=== PATIENT | female | born 1970 | race Caucasian/White ===

== ENCOUNTER 2024-04-05 12:14 | Emergency (ER) | payer SELFPAY ==
--- NOTE | 2024-04-05 13:17 | RAD REPORT ---
Procedure: Chest Single View HISTORY: Chest pain COMPARISON: 2013 FINDINGS: The lungs appear clear of acute infiltrate. No significant pleural effusion noted. The heart is mildly enlarged. IMPRESSION: No acute abnormality is displayed.
[2024-04-05] MEDS ORDERED: ASPIRIN 81 MG CHEWABLE TABLET ONE (13:47)
[2024-04-05] MEDS ORDERED: NA CHLORIDE 0.9% 1,000 ML ONE (13:47)
[2024-04-05 13:59] LABS: Specific Gravity 1.009 (1.005-1.030); Sqamous Epithelial <5 /HPF (None Seen); Urine Bacteria <20 /HPF (<20); Urine Bilirubin NEGATIVE (Negative); Urine Blood Negative (Negative); Urine Clarity Turbid (Clear); Urine Color Colorless (Yellow); Urine Culture Reflex Order NOT NEEDED; Urine Glucose NEGATIVE (Negative); Urine Ketones NEGATIVE (Negative); Urine Microscopic Reflex YN ORDER UMIC; Urine Nitrite NEGATIVE (Negative); Urine Protein NEGATIVE (Negative); Urine RBC None Seen /HPF (None Seen); Urine Urobilinogen Normal (Normal); Urine WBC <5 /HPF (<5)
[2024-04-05 13:59] LABS: Absolute Basophils 0.1 K/uL (0-0.5); Absolute Eosinophils 0.3 K/uL (0-0.5); Absolute Lymphocytes (CBC) 2.8 K/uL (0.7-4.9); Absolute Monocytes 0.7 K/uL (0.1-1.3); Absolute Neutrophil 6.4 K/uL (1.8-8.0); Basophils % 1.1 % (0-1.3); Eosinophils % 3.3 % (0-4.4); Hematocrit 40.4 % (36.0-45.0); Hemoglobin 13.7 g/dL (12.0-15.0); Lymphocytes % 26.9 % (15.3-44.8); MCH 31.1 pg (27.0-35.0); MCHC 33.9 g/dL (32.0-36.0); Monocytes % 6.5 % (3.3-12.3); Neutrophils % 62.2 % (41.7-73.7); Platelets 260 thou/uL (152-406); RBC Red Blood Cell Count 4.39 M/uL (3.86-4.86); Red Cell Distribution Width 13.2 % (12.1-15.2)
[2024-04-05 14:02] LABS: Protime INR 0.98
[2024-04-05 14:17] LABS: ALT/SGPT 21 U/L (13-56); AST/SGOT 16 U/L (15-37); Albumin 3.3 g/dL (3.4-5.0); Albumin/Globulin Ratio 0.9 (1.1-1.8); Alkaline Phosphatase 95 U/L (45-117); Anion Gap 8.7 mEq/L (5.0-15.0); BUN Blood Urea Nitrogen 13 mg/dL (7-18); Bicarbonate 27 mEq/L (21-32); Bilirubin Total 0.3 mg/dL (0.2-1.0); Globulin 3.7 g/dL (2.3-3.5); Glomerular Filtration Rate 101 ml/min (=/>90); Glucose Level 121 mg/dL (74-106); Lipase 67 U/L (13-75); Magnesium 2.1 mg/dL (1.6-2.4); NT PRO-BNP 48 pg/mL (<125); Potassium 3.7 mEq/L (3.5-5.1); Sodium Level 141 mEq/L (136-145); Troponin High Sensitivity 16.9 pg/mL (<58.9)
[2024-04-05 14:18] LABS: Bilirubin Direct < 0.2 mg/dL (0-0.2); Bilirubin Indirect, Calculated 0.1 mg/dL (0.2-0.8)
[2024-04-05] MEDS ORDERED: ONDANSETRON 4 MG/2 ML VIAL ONE (15:55)
[2024-04-05] MEDS ORDERED: dexAMETHasone 10 MG/ML VIAL ONE (15:55)
[2024-04-05] MEDS ORDERED: KETOROLAC 30 MG/ML INJ ONE (15:56)
[2024-04-05] MEDS ORDERED: DIAZEPAM 5 MG TABLET ONE (15:56)
--- NOTE | 2024-04-05 16:27 | RAD REPORT ---
EXAMINATION: MRI CERVICAL SPINE WITHOUT CONTRAST CLINICAL INDICATION: Radiculopathy TECHNIQUE: Multiplanar multisequence MR images were obtained of the cervical spine without intravenou s contrast. Unless otherwise specified, incidental findings do not require dedicated imaging follow-up. COMPARISON: No prior exam. FINDINGS: Craniocervical junction unremarkable C2-3 unremarkable Slight anterior subluxation C3 on C4. Otherwise unremarkable Slight anterior subluxation C4-C5. Tiny central disc protrusion not significant. Disc bulge C5-6 with small osteophytes. Mild to moderate narrowing of the right neural foramina. Osteophytes C6-7 results in mild narrowing of the right C7-T1 unremarkable spinal cord normal caliber and signal. No significant abnormal signal within the bones. IMPRESSION: Spondylosis C5-6 results in mild to moderate right foraminal stenosis
--- NOTE | 2024-04-05 16:36 | RAD REPORT ---
Exam:Shoulder Right 2+ Views History: Right shoulder pain Findings: No fracture or dislocation seen No significant bone or joint abnormality noted
--- NOTE | 2024-04-05 16:48 | ER ---
Nurse's Notes [facility] Name: Christiane Oliveira Age: 54 yrs Sex: Female : 1970 Arrival Date: 04/05/2024 Time: 12:14 Bed 18 Private MD: Diagnosis: Cervical disc disorder with radiculopathy, cervicothoracic region;Radiculopathy, cervical region;Unspecified symptoms and signs involving the musculoskeletal system;Spondylolysis, cervical [id number] Presentation: 04/05 12:24 Chief complaint: Patient states: she has been having intermittent right shoulder pain ap3 for approx one week, but it got worse yesterday. patient reports the pain initially started on the back side of her shoulder blade/neck area and then she started having numbing, throbbing, and tingling pain in her right arm that also started approx one week ago intermittently. Coronavirus screen: At this time, the client does not indicate any symptoms associated with coronavirus-19. Ebola Screen: No symptoms or risks identified at this time. Initial Sepsis Screen: Does the patient meet any 2 criteria? Yes Does the patient have a suspected source of infection? No. Patient's initial sepsis screen is negative. Risk Assessment: Do you want to hurt yourself or someone else? Patient reports no desire to harm self or others. Onset of symptoms is unknown. 12:24 Method Of Arrival: Ambulatory ap3 12:24 Acuity: YUKI 3 ap3 Triage Assessment: 12:27 General: Appears uncomfortable, Behavior is calm, cooperative, appropriate for age. ap3 Pain: Complains of pain in right arm, right shoulder, right side of neck Pain currently is 10 out of 10 on a pain scale. Pain began gradually. Neuro: Level of Consciousness is awake, alert, obeys commands, Oriented to person, place, time, situation, Appropriate for age. Cardiovascular: Patient's skin is warm and dry. Respiratory: Airway is patent Respiratory effort is even, unlabored, Respiratory pattern is regular, symmetrical. Historical: - Allergies: 12:26 Compazine; ap3 - Home Meds: 12:27 None [Active]; ap3 - PMHx: 12:27 None; ap3 - Immunization history:: Client reports receiving the 2nd dose of the Covid vaccine, Flu vaccine is up to date. - Infectious Disease History:: Denies. - Social history:: Smoking status: Patient reports the use of cigarette tobacco products, denies chronic smoking, but will smoke occasionally. Screenin:28 [facility] ED Fall Risk Assessment (Adult) History of falling in the last 3 months, ap3 including since admission No falls in past 3 months (0 pts) Confusion or Disorientation No (0 pts) Intoxicated or Sedated No (0 pts) Impaired Gait No (0 pts) Mobility Assist Device Used No (0 pt) Altered Elimination No (0 pt) Score/Fall Risk Level 0 - 2 = Low Risk Oriented to surroundings, Maintained a safe environment, Educated pt \T\ family on fall prevention, incl call for assistance when getting out of bed, Assessed \T\ reinforced patient's understanding of fall precautions, Hourly rounding (assess needs \T\ fall precautionary measures) done, Used ambulatory aids as needed (educated on \T\ assisted with), Used gait belt as appropriate. Abuse screen: Denies threats or abuse. Nutritional screening: No deficits noted. Tuberculosis screening: No symptoms or risk factors identified. Assessment: 13:40 Reassessment: Patient appears in no apparent distress at this time. Patient and/or db family updated on plan of care and expected duration. Pain level reassessed. Patient is alert, oriented x 3, equal unlabored respirations, skin warm/dry/pink. General: Appears in no apparent distress. comfortable, Behavior is calm, cooperative. Pain: Complains of pain in anterior aspect of right shoulder and right axilla. Neuro: Level of Consciousness is awake, alert, obeys commands, Oriented to person, place, time, situation. Respiratory: Airway is patent Respiratory effort is even, unlabored, Respiratory pattern is regular, symmetrical. 15:05 Reassessment: PT AMBULATORY TO RESTROOM. db 15:33 Reassessment: Patient appears in no apparent distress at this time. Patient and/or db family updated on plan of care and expected duration. Pain level reassessed. Patient is alert, oriented x 3, equal unlabored respirations, skin warm/dry/pink. 16:34 Reassessment: Patient appears in no apparent distress at this time. Patient and/or db family updated on plan of care and expected duration. Pain level reassessed. Patient is alert, oriented x 3, equal unlabored respirations, skin warm/dry/pink. VISITOR AT BEDSIDE. 17:32 Reassessment: Patient appears in no apparent distress at this time. Patient and/or db family updated on plan of care and expected duration. Pain level reassessed. Patient is alert, oriented x 3, equal unlabored respirations, skin warm/dry/pink. Vital Signs: 12:24 BP 174 / 92; Pulse 68; Resp 18; Temp 97.9; Pulse Ox 100% ; Weight 117.93 kg; Height 5 ap3 ft. 5 in. ; Pain 10/10; 13:49 BP 144 / 69; Pulse 59; Resp 16; Pulse Ox 99% on R/A; db 16:13 BP 154 / 72; Pulse 68; Resp 16; Pulse Ox 100% on R/A; db 17:15 BP 148 / 70; Pulse 68; Resp 16; Pulse Ox 100% on R/A; db 12:24 Body Mass Index 43.27 (117.93 kg, 165.1 cm) ap3 12:24 Pain Scale: Adult ap3 NIH Stroke Scale Scores: 15:21 NIHSS Score: 0 [facility] ED Course: 12:17 Patient arrived in ED. ra3 12:26 Chi Witt MD is Attending Physician. zhao 12:26 Triage completed. ap3 12:28 Arm band placed on right wrist. ap3 12:58 XRAY Chest (1 view) In Process Unspecified. EDMS 12:58 Teresa Singer, RN is Primary Nurse. db 13:40 Inserted saline lock: 22 gauge in left antecubital area, using aseptic technique. Blood db collected. Flushed with 10 mL NS. 14:00 Client placed on continuous cardiac and pulse oximetry monitoring. NIBP monitoring db applied. monitoring analyst on. Pulse ox on. NIBP on. 14:20 Patient has correct armband on for positive identification. Bed in low position. Call db light in reach. Side rails up X 1. 15:33 Patient moved to MRI via wheelchair. db 15:55 C Spine Wo Cont In Process Unspecified. EDMS 16:12 Shoulder Right (2 View) XRAY In Process Unspecified. EDMS 16:12 Patient moved back from radiology. Patient moved back from MRI. db 16:46 Goran Cabello MD is Referral Physician. zhao 17:45 Provided Education on: DISCHARGE AND FOLLOWUP . Warm blanket given. Pillow given. db 17:45 No provider procedures requiring assistance completed. IV discontinued, intact, db bleeding controlled, No redness/swelling at site. Administered Medications: 13:53 Drug: Aspirin PO Chewable Tablet 162 mg PO once Route: PO; db 15:58 Follow up: Response: No adverse reaction db 13:53 Drug: NS 0.9% IV 1000 ml IV at 1 bolus Per protocol; to be given as a bolus over 60 db minutes Route: IV; Rate: 1 bolus; Site: right antecubital; 17:00 Follow up: Response: No adverse reaction; IV Status: Completed infusion; IV Intake: db 1000ml 16:15 Drug: Decadron - Dexamethasone IVP 10 mg IVP once Route: IVP; Site: left antecubital; db 17:06 Follow up: Response: No adverse reaction db 16:15 Drug: Ketorolac IVP 30 mg IVP once Route: IVP; Site: left antecubital; db 17:07 Follow up: Response: No adverse reaction db 16:15 Drug: Ondansetron IVP 4 mg IVP once; over 2 minutes Route: IVP; Site: left antecubital; db 17:07 Follow up: Response: No adverse reaction db 16:15 Drug: Diazepam PO 10 mg PO once Route: PO; db 17:06 Follow up: Response: No adverse reaction db 17:04 Not Given (Patient Refused): fentanyl (pf)50 mcg IVP once db Medication: 17:45 VIS not applicable for this client. db Intake: 17:00 IV: 1000ml; Total: 1000ml. db Outcome: 16:48 Discharge ordered by MD. churchill 17:45 Discharged to home ambulatory, with family, db 17:45 Condition: stable 17:45 Discharge instructions given to patient, family, Instructed on discharge instructions, follow up and referral plans. Prescriptions given X 4, 17:47 Patient left the ED. db NIH Stroke Scale - NIH Stroke Score Date: 04/05/2024 Time: 15:21 Total Score = 0 10. Dysarthria (speech clarity - read or repeat words) - 0(Normal) 11. Extinction and Inattention (visual/tactile/auditory/spatial/personal) - 0(No abnormality) 1a. Level of Consciousness (LOC) - 0(Alert) 1b. Level of Consciousness (LOC) (Month \T\ Age) - 0(Both) 1c. LOC Commands (Open \T\ Closes Eyes/Commercial Accountant) - 0(Both) 2. Best Gaze (Lateral Gaze Paresis) - 0(Normal) 3. Visual Field Loss - 0(No visual loss) 4. Facial Palsy - 0(Normal) 5a. Left Arm: Motor (10-second hold) - 0(No drift) 5b. Right Arm: Motor (10-second hold) - 0(No drift) 6a. Left Leg: Motor (5-second hold - always test supine) - 0(No drift) 6b. Right Leg: Motor (5-second hold - always test supine) - 0(No drift) 7. Limb Ataxia (finger/nose \T\ heel/anthony - test with eyes open) - 0(Absent) 8. Sensory Loss (pinprick arms/legs/face) - 0(Normal) 9. Best Language: Aphasia (description/naming/reading) - 0(No aphasia) Initials: zhao Signatures: Dispatcher [employer] EDMS Chi Witt MD MD cha Prokisch, Amanda RN RN ap3 Teresa Singer RN Cecilia Osorio ra3 Corrections: (The following items were deleted from the chart) 12:27 12:26 Allergies: No Known Allergies; ap3 ap3 17:45 17:45 Discharge instructions given to patient, family, Instructed on discharge db instructions, follow up and referral plans. Prescriptions given X 3, db
--- NOTE | 2024-04-05 16:48 | EDPHYS ---
Physician Documentation [facility] Name: Christiane Oliveira Age: 54 yrs Sex: Female : 1970 Arrival Date: 04/05/2024 Time: 12:14 Bed 18 Private MD: [place] Physician Chi Witt HPI: 04/05 15:20 This 54 yrs old Female presents to ER via Ambulatory with complaints of zhao Numbness Of Arm - right. 15:20 The patient or guardian complains of decreased range of motion, pain, that is acute. zhao The complaints affect the anterior aspect of right shoulder, right bicep, posterior aspect of right shoulder, right tricep and palmar aspect of right forearm. Context: The problem was sustained at an unknown location, resulted from twisting motion of the upper extremity. Onset: The symptoms/episode began/occurred 1 week(s) ago. Treatment prior to arrival includes: no previous treatment. Modifying factors: The symptoms are alleviated by nothing. remaining still, the symptoms are aggravated by. Associated signs and symptoms: The patient has no apparent associated signs or symptoms. Severity of symptoms: At their worst the symptoms were moderate, in the emergency department the symptoms are unchanged. The patient has not experienced similar symptoms in the past. Historical: - Allergies: 12:26 Compazine; ap3 - Home Meds: 12:27 None [Active]; ap3 - PMHx: 12:27 None; ap3 - Immunization history:: Client reports receiving the 2nd dose of the Covid vaccine, Flu vaccine is up to date. - Infectious Disease History:: Denies. - Social history:: Smoking status: Patient reports the use of cigarette tobacco products, denies chronic smoking, but will smoke occasionally. ROS: 15:21 Constitutional: Negative for fever, chills, and weight loss, Eyes: Negative for injury, zhao pain, redness, and discharge, ENT: Negative for injury, pain, and discharge, Cardiovascular: Negative for chest pain, palpitations, and edema, Respiratory: Negative for shortness of breath, cough, wheezing, and pleuritic chest pain, Abdomen/GI: Negative for abdominal pain, nausea, vomiting, diarrhea, and constipation, Back: Negative for injury and pain, : Negative for injury, bleeding, discharge, and swelling, Skin: Negative for injury, rash, and discoloration, Neuro: Negative for headache, weakness, numbness, tingling, and seizure, Psych: Negative for depression, anxiety, suicide ideation, homicidal ideation, and hallucinations, Allergy/Immunology: Negative for hives, rash, and allergies, Endocrine: Negative for neck swelling, polydipsia, polyuria, polyphagia, and marked weight changes, Hematologic/Lymphatic: Negative for swollen nodes, abnormal bleeding, and unusual bruising, 15:21 Neck: Negative for pain with movement, pain at rest, 15:21 Back: Positive for pain at rest, pain with movement, of the right trapezius and right scapular area, Exam: 15:21 Constitutional: This is a well developed, well nourished patient who is awake, alert, zhao and in no acute distress. Head/Face: Normocephalic, atraumatic. Eyes: Pupils equal round and reactive to light, extra-ocular motions intact. Lids and lashes normal. Conjunctiva and sclera are non-icteric and not injected. Cornea within normal limits. Periorbital areas with no swelling, redness, or edema. ENT: Nares patent. No nasal discharge, no septal abnormalities noted. Tympanic membranes are normal and external auditory canals are clear. Oropharynx with no redness, swelling, or masses, exudates, or evidence of obstruction, uvula midline. Mucous membranes moist. Neck: Trachea midline, no thyromegaly or masses palpated, and no cervical lymphadenopathy. Supple, full range of motion without nuchal rigidity, or vertebral point tenderness. No Meningismus. Chest/axilla: Normal chest wall appearance and motion. Nontender with no deformity. No lesions are appreciated. Cardiovascular: Regular rate and rhythm with a normal S1 and S2. No gallops, murmurs, or rubs. Normal PMI, no JVD. No pulse deficits. Respiratory: Lungs have equal breath sounds bilaterally, clear to auscultation and percussion. No rales, rhonchi or wheezes noted. No increased work of breathing, no retractions or nasal flaring. Abdomen/GI: Soft, non-tender, with normal bowel sounds. No distension or tympany. No guarding or rebound. No evidence of tenderness throughout. Skin: Warm, dry with normal turgor. Normal color with no rashes, no lesions, and no evidence of cellulitis. Neuro: Awake and alert, GCS 15, oriented to person, place, time, and situation. Cranial nerves II-XII grossly intact. Motor strength 5/5 in all extremities. Sensory grossly intact. Cerebellar exam normal. Normal gait. Psych: Awake, alert, with orientation to person, place and time. Behavior, mood, and affect are within normal limits. 15:21 ECG was reviewed by the Attending Physician. 15:21 Back: ROM is painful, normal spinal alignment noted, CVA tenderness, is absent, vertebral tenderness, is not appreciated, 15:21 Neuro: Exam negative for acute changes, Orientation: is normal, appropriate for stated age, no acute changes, Mentation: is normal, appropriate for stated age, no acute changes, Memory: is normal, appropriate for stated age, no acute changes, Cranial nerves: grossly normal, is grossly normal based on the patient's age, no acute changes, Cerebellar function: is grossly normal, is grossly normal based on the patient's age, no acute changes, Motor: is normal, is grossly normal based on the patient's age, no acute changes, moves all fours, strength is 5/5 in all extremities, Sensation: is normal, no obvious gross deficits, appropriate no acute changes, Gait: is steady, appropriate for age, Deep tendon reflexes are 2+ (normal) in the bilateral brachioradialis, bicep, tricep and patellar and Achilles tendons, seizure activity, is not displayed by the patient, Vital Signs: 12:24 BP 174 / 92; Pulse 68; Resp 18; Temp 97.9; Pulse Ox 100% ; Weight 117.93 kg; Height 5 ap3 ft. 5 in. ; Pain 10/10; 13:49 BP 144 / 69; Pulse 59; Resp 16; Pulse Ox 99% on R/A; db 16:13 BP 154 / 72; Pulse 68; Resp 16; Pulse Ox 100% on R/A; db 17:15 BP 148 / 70; Pulse 68; Resp 16; Pulse Ox 100% on R/A; db 12:24 Body Mass Index 43.27 (117.93 kg, 165.1 cm) ap3 12:24 Pain Scale: Adult ap3 NIH Stroke Scale Scores: 15:21 NIHSS Score: 0 zhao MDM: 12:26 Medical Screening Exam initiated [facility] 15:25 Differential diagnosis: closed fracture, contusion, tendonitis. Data reviewed: vital zhao signs, nurses notes, lab test result(s), EKG, radiologic studies, MRI, plain films. Consideration of Admission/Observation Escalation of care including admission/observation considered. I considered the following discharge prescriptions or medication management in the emergency department Medications were administered in the Emergency Department. See MAR. Independent interpretation of the following test(s) in the Emergency Department EKG: See my EKG interpretation above. Test considered but Not performed: CT: NO CT C SPINE. Historians other than the Patient: PT WELL INFORMED. Care significantly affected by the following chronic conditions: Diabetes, Obesity. 04/05 12:27 Order name: Basic Metabolic Panel; Complete Time: 15:14 [facility] 04/05 12:27 Order name: CBC with Diff; Complete Time: 15:14 [facility] 04/05 12:27 Order name: LFT's; Complete Time: 15:14 [facility] 04/05 12:27 Order name: Magnesium; Complete Time: 15:14 [facility] 04/05 12:27 Order name: NT PRO-BNP; Complete Time: 15:14 [facility] 04/05 12:27 Order name: PT-INR; Complete Time: 15:14 [facility] 04/05 12:27 Order name: Troponin HS; Complete Time: 15:14 [facility] 04/05 12:27 Order name: Lipase; Complete Time: 15:14 [facility] 04/05 12:27 Order name: Urinalysis w/ reflexes; Complete Time: 15:14 [facility] 04/05 12:27 Order name: XRAY Chest (1 view); Complete Time: 15:14 [facility] 04/05 15:20 Order name: Shoulder Right (2 View) XRAY; Complete Time: 16:45 [facility] 04/05 15:23 Order name: C Spine Wo Cont; Complete Time: 16:45 EDMS 04/05 12:27 Order name: Cardiac monitoring; Complete Time: 14:17 [facility] 04/05 12:27 Order name: EKG - Nurse/Tech; Complete Time: 14:17 [facility] 04/05 12:27 Order name: IV Saline Lock; Complete Time: 14:17 [facility] 04/05 12:27 Order name: Labs collected and sent; Complete Time: 14:17 [facility] 04/05 12:27 Order name: O2 Per Protocol; Complete Time: 14:17 [facility] 04/05 12:27 Order name: O2 Sat Monitoring; Complete Time: 14:18 [facility] 04/05 15:20 Order name: Sling; Complete Time: 17:44 zhao EC:21 Rate is 62 beats/min. Rhythm is regular. QRS [place] is Normal. [place] interval is normal. QRS zhao interval is normal. QT interval is normal. No Q waves. T waves are Normal. No ST changes noted. Clinical impression: NSR w/ Non-specific ST/T Changes and No evidence of ischemia. Interpreted by me. Reviewed by me. Administered Medications: 13:53 Drug: Aspirin PO Chewable Tablet 162 mg PO once Route: PO; db 15:58 Follow up: Response: No adverse reaction db 13:53 Drug: NS 0.9% IV 1000 ml IV at 1 bolus Per protocol; to be given as a bolus over 60 db minutes Route: IV; Rate: 1 bolus; Site: right antecubital; 17:00 Follow up: Response: No adverse reaction; IV Status: Completed infusion; IV Intake: db 1000ml 16:15 Drug: Decadron - Dexamethasone IVP 10 mg IVP once Route: IVP; Site: left antecubital; db 17:06 Follow up: Response: No adverse reaction db 16:15 Drug: Ketorolac IVP 30 mg IVP once Route: IVP; Site: left antecubital; db 17:07 Follow up: Response: No adverse reaction db 16:15 Drug: Ondansetron IVP 4 mg IVP once; over 2 minutes Route: IVP; Site: left antecubital; db 17:07 Follow up: Response: No adverse reaction db 16:15 Drug: Diazepam PO 10 mg PO once Route: PO; db 17:06 Follow up: Response: No adverse reaction db 17:04 Not Given (Patient Refused): fentanyl (pf)50 mcg IVP once db Disposition Summary: 04/05/24 16:48 Discharge Ordered Notes: Location: Home zhao Problem: new zhao Symptoms: have improved zhao Condition: Stable zhao Diagnosis - Cervical disc disorder with radiculopathy, cervicothoracic region zhao - Radiculopathy, cervical region zhao - Unspecified symptoms and signs involving the musculoskeletal system zhao - Spondylolysis, cervical region - C5-C6 zhao Followup: zhao - With: Private Physician - When: 2 - 3 days - Reason: Recheck today's complaints, Continuance of care, Re-evaluation by your physician Followup: zhao - With: Goran Cabello MD - When: 2 - 3 days - Reason: Recheck today's complaints, Re-evaluation by your physician Discharge Instructions: - Discharge Summary Sheet zhao - Cervical Radiculopathy zhao - Herniated Disk zhao - Musculoskeletal Pain zhao - Herniated Disk, [id number] zhao - Spondylolysis zhao Forms: - Medication Reconciliation Form zhao - Antibiotic Education zhao - Prescription Opioid Use zhao - Patient Portal Instructions zhao - Leadership Thank You Letter zhao - Work release form db Prescriptions: - acetaminophen-codeine 300-30 mg Oral tablet - take 2 tablet ORAL route every 6 hours; 24 tablet; Refills: 0, Product zhao Selection Permitted - dexamethasone 4 mg Oral tablet - take 1 tablet ORAL route daily; 5 tablet; Refills: 0, Product Selection zhao Permitted - diclofenac sodium 50 mg Oral tablet, delayed release (enteric coated) - take 1 tablet ORAL route 3 times per day; 30 tablet; Refills: 0, Product zhao Selection Permitted - methocarbamol 750 mg Oral tablet - take 1 tablet ORAL route every 4-6 hours; 36 tablet; Refills: 0, Product zhao Selection Permitted NIH Stroke Scale - NIH Stroke Score Date: 04/05/2024 Time: 15:21 Total Score = 0 10. Dysarthria (speech clarity - read or repeat words) - 0(Normal) 11. Extinction and Inattention (visual/tactile/auditory/spatial/personal) - 0(No abnormality) 1a. Level of Consciousness (LOC) - 0(Alert) 1b. Level of Consciousness (LOC) (Month \T\ Age) - 0(Both) 1c. LOC Commands (Open \T\ Closes Eyes/Prosthetics Technician) - 0(Both) 2. Best Gaze (Lateral Gaze Paresis) - 0(Normal) 3. Visual Field Loss - 0(No visual loss) 4. Facial Palsy - 0(Normal) 5a. Left Arm: Motor (10-second hold) - 0(No drift) 5b. Right Arm: Motor (10-second hold) - 0(No drift) 6a. Left Leg: Motor (5-second hold - always test supine) - 0(No drift) 6b. Right Leg: Motor (5-second hold - always test supine) - 0(No drift) 7. Limb Ataxia (finger/nose \T\ heel/anthony - test with eyes open) - 0(Absent) 8. Sensory Loss (pinprick arms/legs/face) - 0(Normal) 9. Best Language: Aphasia (description/naming/reading) - 0(No aphasia) Initials: zhao Signatures: Dispatcher [employer] Chi Bynum MD MD cha Prokisch, Amanda RN RN ap3 Teresa Singer RN RN db Corrections: (The following items were deleted from the chart) 12:27 12:26 Allergies: No Known Allergies; ap3 ap3 12:28 12:28 Chest Single View+RAD.RAD.BRZ ordered. EDMS EDMS 15:21 15:21 Shoulder Right 2 View+RAD.RAD.BRZ ordered. EDMS EDMS
[2024-04-05 23:36] VITALS: TEMP 97.9
[2024-04-05 23:47] VITALS: O2SAT 100
[2024-04-05 23:54] VITALS: BP 148/70
== END 2024-04-05 17:47 | disposition home or self-care (01) ==
LOC: ER 12:14
DX: M50.13 Cervical disc disorder with radiculopathy, cervicothoracic region (principal); M43.02 Spondylolysis, cervical region; R29.91 Unspecified symptoms and signs involving the musculoskeletal system
CPT/HCPCS: 36415; 71045; 72141; 80048; 80076; 81001; 83690; 83735; 83880; 84484; 85025; 85610; 96361; 96374; 96375; 99285; J1100; J2405; J7030

== ENCOUNTER 2025-01-24 14:17 | Inpatient (IN) | payer SELFPAY ==
[2025-01-24 16:29] LABS: Absolute Lymphocytes (CBC) 3.1 K/uL (0.7-4.9); Hematocrit 41.1 % (36.0-45.0); Hemoglobin 14.1 g/dL (12.0-15.0); MCH 30.7 pg (27.0-35.0); MCHC 34.3 g/dL (32.0-36.0); MCV 89.5 fL (80-100); MPV 8.2 fL (7.6-11.3); Nucleated RBC Absolute Count 0.0 (0-0); Nucleated Red Blood Cells % 0.2 % (0-0); RBC Red Blood Cell Count 4.60 M/uL (3.86-4.86); White Blood Count 13.10 thou/uL (4.3-10.9)
[2025-01-24 16:30] LABS: Urine Microscopic Reflex YN NO UMIC
[2025-01-24 16:39] LABS: PT Prothrombin Time 11.8 SECONDS (10-13.0); PTT, Activated Partial Thromb 30.6 SECONDS (27.2-37.4); Protime INR 1.05
[2025-01-24 16:49] LABS: ALT/SGPT 34.0 U/L (13-56); AST/SGOT 21.0 U/L (15-37); Albumin 3.5 g/dL (3.4-5.0); Albumin/Globulin Ratio 0.8 (1.1-1.8); Alkaline Phosphatase 122.0 U/L (45-117); Anion Gap 7.8 mEq/L (5.0-15.0); BUN Blood Urea Nitrogen 13.0 mg/dL (7-18); C-Reactive Protein 13.7 mg/L (<3.00); Globulin 4.5 g/dL (2.3-3.5); Glucose Level 99.0 mg/dL (74-106); NT PRO-BNP 76.0 pg/mL (<125); Potassium 3.8 mEq/L (3.5-5.1); Troponin High Sensitivity 11.9 pg/mL (<58.9)
--- NOTE | 2025-01-24 18:06 | ER ---
Nurse's Notes [facility] Name: Christiane Oliveira Age: 54 yrs Sex: Female : 1970 Arrival Date: 01/24/2025 Time: 14:17 Bed 25 Private MD: Diagnosis: Cellulitis of right lower limb Presentation: 01/24 14:41 Chief complaint: Patient states: SHE BEGAN HAVING RT LOWER LEG PAIN, BLOTCHY REDNESS ll1 AND SWELLING LAST NIGHT. WOKE UP TODAY WITH ENTIRE LOWER LEG RED, BURNING PAIN AND SWELLING. Coronavirus screen: At this time, the client does not indicate any symptoms associated with coronavirus-19. Ebola Screen: No symptoms or risks identified at this time. Initial Sepsis Screen: Does the patient meet any 2 criteria? No. Patient's initial sepsis screen is negative. Does the patient have a suspected source of infection? No. Patient's initial sepsis screen is negative. Risk Assessment: Do you want to hurt yourself or someone else? Patient reports no desire to harm self or others. Onset of symptoms was January 23, 2025. 14:41 Method Of Arrival: Ambulatory ll1 14:41 Acuity: YUKI 3 ll1 Triage Assessment: 14:46 General: Appears in no apparent distress. uncomfortable, Behavior is calm, cooperative, ll1 appropriate for age. Pain: Complains of pain in right leg. Derm: Skin is red, RLE. Musculoskeletal: Swelling present in right leg. 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 Vital Signs: 14:41 BP 165 / 81; Pulse 86; Resp 16; Temp 97.7; Pulse Ox 100% on R/A; Weight 114.31 kg; ll1 Height 5 ft. 5 in. ; Pain 9/10; 14:41 Body Mass Index 41.93 (114.31 kg, 165.1 cm) ll1 14:41 Pain Scale: Adult ll1 ED Course: 14:20 Patient arrived in ED. cj3 14:24 Chi Bae PA-C is PHCP. cp 14:24 Chi Witt MD is Attending Physician. cp 14:45 Triage completed. ll1 14:46 Arm band placed on right wrist. ll1 16:20 Initial lab(s) drawn, by me, sent to lab. First set of blood cultures drawn by me, bc6 Urine collected: clean catch specimen, clear. 16:22 Test, Urine Sent. bc6 16:22 UA Rfx Benja Cult if indicated Sent. bc6 16:22 CRP Sent. bc6 16:23 BNP Sent. bc6 16:23 Blood Culture Adult (2) Sent. bc6 16:23 CBC with Diff Sent. bc6 16:23 CMP Sent. bc6 16:23 Lactate w/ 2H reflex if indic. Sent. bc6 16:23 Protime (+inr) Sent. bc6 16:23 Ptt, Activated Sent. bc6 16:23 Troponin HS Sent. bc6 16:23 Inserted saline lock: 20 gauge in left antecubital area, using aseptic technique. Blood bc6 collected. Flushed with 10 mL NS. 18:05 Yo Saini MD is Hospitalizing Provider. cp 18:15 EKG done, by ophthalmic technician apprentice. reviewed by Chi Bae PA-C. ts3 Administered Medications: No medications were administered Outcome: 18:06 Decision to Hospitalize by Provider. cp 01/25 10:22 Patient left the ED. iw Signatures: Shadia Naidu, RN RN iw Chi Bae PA-C PA-C cp Fox Arceo, RN RN ll1 Angela Sherwood bc6 Shavonne Brizuela cj3 Hyun Hwang ts3
--- NOTE | 2025-01-24 18:06 | EDPHYS ---
Physician Documentation [facility] Name: Christiane Oliveira Age: 54 yrs Sex: Female : 1970 Arrival Date: 01/24/2025 Time: 14:17 Bed 25 Private MD: CORINA Physician Chi Witt HPI: 01/24 14:55 This 54 yrs old Female presents to ER via Ambulatory with complaints of SENT BY DR queta JORGE. 14:55 The patient presents with pain, that is acute, swelling, tenderness, erythema. cp 14:55 The complaints affect the right lower leg. Onset: The symptoms/episode began/occurred cp last night. Associated signs and symptoms: Pertinent positives: swelling, warmth, Pertinent negatives fever, numbness, weakness. Treatment prior to arrival includes: no previous treatment. Severity of symptoms: in the emergency department the symptoms are unchanged, despite home interventions. Patient is a 54-year-old female with no significant past medical history who presents to the emergency department with concern for cellulitis of her right lower leg. 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 Jorge, who sent patient to the emergency department for evaluation. Patient reports she had an ultrasound to rule out DVT prior to arrival. 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 ROS: 15:00 Eyes: Negative for injury, pain, redness, and discharge, cp 15:00 Constitutional: Negative for body aches, chills, fever, poor PO intake, 15:00 ENT: Negative for drainage from ear(s), ear pain, sore throat, difficulty swallowing, difficulty handling secretions, 15:00 Cardiovascular: Negative for chest pain, palpitations, 15:00 Respiratory: Negative for cough, shortness of breath, wheezing, 15:00 Abdomen/GI: Negative for abdominal pain, vomiting, diarrhea, constipation, 15:00 Neuro: Negative for altered mental status, dizziness, headache, weakness, 15:00 All other systems are negative, Exam: 15:05 Constitutional: The patient appears in no acute distress, alert, awake, cp non-diaphoretic, non-toxic, well developed, well nourished, obese, 15:05 Head/Face: Normocephalic, atraumatic. cp 15:05 Eyes: Periorbital structures: appear normal, Conjunctiva: normal, no exudate, no injection, Sclera: no appreciated abnormality, Lids and lashes: appear normal, bilaterally, 15:05 ENT: External ear(s): are unremarkable, Nose: is normal, Mouth: Lips: moist, Oral mucosa: moist, Posterior pharynx: Airway: no evidence of obstruction, patent, 15:05 Neck: ROM/movement: is normal, is supple, without pain, no range of motions limitations, 15:05 Chest/axilla: Inspection: normal, 15:05 Cardiovascular: Rate: normal, Rhythm: regular, Edema: is not appreciated, JVD: is not appreciated, 15:05 Respiratory: the patient does not display signs of respiratory distress, Respirations: normal, no use of accessory muscles, no retractions, labored breathing, is not present, Breath sounds: are clear throughout, no decreased breath sounds, no stridor, no wheezing, 15:05 Abdomen/GI: Inspection: abdomen appears normal, 15:05 Back: pain, is absent, ROM is normal, 15:05 Musculoskeletal/extremity: Extremities: noted in the right lower leg: erythema, pain, swelling, tenderness, There is no evidence of open wounds, Pulses: noted to be 2+ in the right dorsalis pedis artery, 15:05 Neuro: Orientation: to person, place \T\ time. Mentation: is normal, Cerebellar function: is grossly normal, Motor: moves all fours, strength is normal, Sensation: is normal, 18:15 ECG was reviewed by the Attending Physician. cp Vital Signs: 14:41 BP 165 / 81; Pulse 86; Resp 16; Temp 97.7; Pulse Ox 100% on R/A; Weight 114.31 kg; ll1 Height 5 ft. 5 in. ; Pain 9/10; 14:41 Body Mass Index 41.93 (114.31 kg, 165.1 cm) ll1 14:41 Pain Scale: Adult ll1 MDM: 14:42 Medical Screening Exam initiated zhao 15:00 Differential diagnosis: DVT, cellulitis, electrolyte abnormality, sepsis, abscess. cp 18:10 Data reviewed: vital signs, nurses notes, lab test result(s), EKG, and as a result, I cp will admit patient. 18:10 Management of patient was discussed with the following: Hospitalist: DR Saini will cp admit after discussion. I considered the following discharge prescriptions or medication management in the emergency department Medications were administered in the Emergency Department. See MAR. Independent interpretation of the following test(s) in the Emergency Department EKG: See my EKG interpretation above. Test considered but Not performed: X-ray: images of right lower leg. Care significantly affected by the following chronic conditions: Obesity. Counseling: I had a detailed discussion with the patient and/or guardian regarding the historical points, exam findings, and any diagnostic results supporting the discharge/admit diagnosis, lab results, radiology results, the need for further work-up and treatment in the hospital. Response to treatment: the patient's symptoms have mildly improved after treatment. 01/24 14:46 Order name: BNP; Complete Time: 16:55 01/24 14:46 Order name: Blood Culture Adult (2) cp 01/24 14:46 Order name: CBC with Diff; Complete Time: 16:55 01/24 16:55 Interpretation: Normal except: WBC 13.10; NEUT A 8.9. 01/24 14:46 Order name: CMP; Complete Time: 16:55 01/24 17:04 Interpretation: Normal except: ALK 122; GLOB 4.5; A/G 0.8. 01/24 14:46 Order name: Lactate w/ 2H reflex if indic.; Complete Time: 16:55 01/24 14:46 Order name: Protime (+inr); Complete Time: 16:55 01/24 14:46 Order name: Ptt, Activated; Complete Time: 16:55 01/24 14:46 Order name: Troponin HS; Complete Time: 16:55 01/24 14:46 Order name: CRP; Complete Time: 16:55 01/24 17:03 Interpretation: Abnormal: C-REACTIVE PROT 13.70. 01/24 14:46 Order name: UA Rfx Benja Cult if indicated; Complete Time: 16:55 01/24 14:46 Order name: Test, Urine; Complete Time: 16:55 cp 01/24 18:33 Order name: Glucose, Ancillary Testing EDVT 01/24 18:45 Order name: CBC with Automated Diff EDMS 01/24 18:45 Order name: CBC with Automated Diff EDMS 01/24 18:45 Order name: Comprehensive Metabolic Panel EDVT 01/24 18:45 Order name: Comprehensive Metabolic Panel EDVT 01/24 14:46 Order name: EKG; Complete Time: 14:47 cp 01/24 14:46 Order name: Accucheck; Complete Time: 18:15 cp 01/24 14:46 Order name: EKG - Nurse/Tech; Complete Time: 18:15 cp 01/24 14:46 Order name: IV Saline Lock - Large Bore; Complete Time: 16:23 01/24 14:46 Order name: Labs collected and sent; Complete Time: 16:23 cp EC:15 Rate is 76 beats/min. Rhythm is regular. PA interval is normal. QRS interval is normal. cp QT interval is normal. T waves are Inverted in leads aVR, V2. Interpreted by me. Reviewed by me. Administered Medications: No medications were administered Disposition Summary: 01/24/25 18:06 Hospitalization Ordered Notes: Hospitalization Status: Inpatient Admission cp Provider: Yo Saini cp Condition: Stable cp Problem: new cp Symptoms: have improved cp Bed/Room Type: Standard cp Location: Telemetry/MedSurg (observation)(01/25/25 09:57) bc6 Room Assignment: [facility](01/25/25 09:57) 6 Diagnosis - Cellulitis of right lower limb cp Forms: - Medication Reconciliation Form cp - SBAR form cp - Leadership Thank You Letter cp Signatures: Dispatcher [employer] EDChi Mac MD MD cha Page, Corey, PA-Rocio PA-C Fox Osorio, RN RN ll1 Micaela Rosenberg RN RN [email or web address] Angela Sherwood bc6 Corrections: (The following items were deleted from the chart) 17:04 16:56 Normal except: ALK 122. cp cp 19:18 18:06 Telemetry/MedSurg (Inpatient) kb3 19:18 18:06 cp kb3 01/25 09:57 01/24 19:18 [facility] ER HOLD kb3 bc6 01/25 09:57 01/24 19:18 ERHOLD- kb3 bc6 01/26 01:01/25 15:00 Constitutional: Negative for body aches, chills, fever, poor PO intake, cp cp 01/26 01:01/25 15:00 Cardiovascular: Negative for chest pain, palpitations, cp cp 01/26 01:01/25 15:00 Respiratory: Negative for cough, shortness of breath, wheezing, cp cp 01/26 01:01/25 15:00 Abdomen/GI: Negative for abdominal pain, vomiting, diarrhea, constipation, cp cp 01/26 01:01/25 15:00 Eyes: Negative for injury, pain, redness, and discharge, cp cp 01/26 01:01/25 15:00 ENT: Negative for drainage from ear(s), ear pain, sore throat, difficulty cp swallowing, difficulty handling secretions, cp 01/26 01:01/25 15:00 Neuro: Negative for altered mental status, dizziness, headache, weakness, cpcp 01/26 01:01/25 15:00 All other systems are negative, cp cp
--- NOTE | 2025-01-24 18:37 | P.HP ---
Certification for Inpatient Patient admitted to: Inpatient With expected LOS: >2 Midnights Practitioner: I am a practitioner with admitting privileges, knowledge of patient current condition, hospital course, and medical plan of care. Services: Services provided to patient in accordance with Admission requirements found in Title 42 Section 412.3 of the Code of Federal Regulations Patient History Date of Service: 01/24/25 Reason for admission: Cellulitis Right Lower Leg History of Present Illness: 54 yrs old Female with past medical history of hypertension who was sent over by Dr. Fox's office for pain and swelling in the right lower extremity started 3 to 4 days ago and has been progressively getting worse. Patient denies any trauma. Insidious in onset. Denies any fever or chills. Denies any chest pain or shortness of breath. Patient was assessed in the ER and was admitted for further management of right lower extremity cellulitis Allergies prochlorperazine [From Compazine] Allergy (Verified 01/24/25 20:49) Hives Home medications list reviewed: Yes Home Medications: Nifedipine [Procardia Xl] 60 mg PO BEDTIME 01/24/25 - Past Medical/Surgical History Past Medical History: Reviewed- Non-Contributory Past Surgical History: Reviewed- Non-Contributory - Social History Smoking Status: Never smoker Review of Systems 10-point ROS is otherwise unremarkable Physical Examination - Vital Signs Temperature: 97.8 F Blood Pressure: 136/76 Pulse: 78 Respirations: 18 Pulse Ox (%): 94 - Physical Exam General: Alert, Oriented x3, Mild distress HEENT: Atraumatic, Normocephalic Neck: Supple Respiratory: Clear to auscultation bilaterally, Normal air movement Cardiovascular: Regular rate/rhythm, Normal S1 S2 Capillary refill: <2 Seconds Gastrointestinal: Soft and benign, W/out hepatosplenomegaly Musculoskeletal: No clubbing, Erythema, Tenderness, Warmth Integumentary: Erythema, Warmth Neurological: Other (Alert awake nonfocal) Lymphatics: No axilla or inguinal lymphadenopathy - Studies Laboratory Data (last 24 hrs) 01/24/25 01/24/25 01/24/25 16:20 16:20 16:20 WBC 13.10 H Hgb 14.1 Hct 41.1 Plt Count 312 PT 11.8 INR 1.05 APTT 30.6 Sodium 139 Potassium 3.8 BUN 13 Creatinine 0.76 Glucose 99 Total Bilirubin 0.5 AST 21 ALT 34 Alkaline Phosphatase 122 H Assessment and Plan - Plan Right lower extremity cellulitis Elevated CRP noted Leukocytosis. Will monitor CBC in a.m. Started on IV antibiotic Pain control Will obtain right lower extremity Hypertension Continue home medications and titrate as needed GI/DVT prophylaxis Advanced directive full code Discharge Plan: Home Plan to discharge in: 48 Hours - Advance Directives Does patient have a Living Will: No Does patient have a Durable POA for Healthcare: No - Code Status/Comfort Care Code Status: Full Code Time Spent Managing Pts Care (In Minutes): 48
[2025-01-24] MEDS ORDERED: ACETAMINOPHEN 325 MG TABLET PO PRN (18:40)
[2025-01-24] MEDS ORDERED: ONDANSETRON 4 MG/2 ML VIAL IV PRN (18:40)
[2025-01-24] MEDS: VANCOMYCIN 1 GM in NA CHLORIDE 0.9% 250 ML IVPB SCH (18:44)
[2025-01-24] MEDS: VANCOMYCIN 2 GM in NA CHLORIDE 0.9% 500 ML IVPB SCH (20:00)
[2025-01-24] MEDS ORDERED: MORPHINE 2 MG/ML SYR ONE (20:51)
[2025-01-24] MEDS ORDERED: NA CHLORIDE 0.9% 500 ML ONE (20:52)
[2025-01-24] MEDS ORDERED: VANCOMYCIN 1 GM/VIAL ONE (20:52)
[2025-01-24] MEDS: MORPHINE 2 MG/ML SYR IV PRN (21:06)
[2025-01-25] MEDS ORDERED: NA CHLORIDE 0.9% 100 ML ONE ×2 (00:14→08:27)
[2025-01-25] MEDS ORDERED: PIPERACIL/TAZO 3.375 GM VIAL IV ONE ×2 (00:14→08:18)
[2025-01-25] MEDS: PIPER TAZO 3.375 GM in NA CHLORIDE 0.9% 100 ML IV SCH (01:00)
[2025-01-25 01:44] VITALS: BMI 44.9
[2025-01-25 05:04] LABS: Absolute Lymphocytes (CBC) 2.4 K/uL (0.7-4.9); Hematocrit 36.1 % (36.0-45.0); Hemoglobin 12.6 g/dL (12.0-15.0); MCH 31.1 pg (27.0-35.0); MCHC 35.0 g/dL (32.0-36.0); MCV 89.0 fL (80-100); MPV 8.3 fL (7.6-11.3); Nucleated RBC Absolute Count 0.0 (0-0); Nucleated Red Blood Cells % 0.1 % (0-0); RBC Red Blood Cell Count 4.06 M/uL (3.86-4.86); White Blood Count 8.50 thou/uL (4.3-10.9)
[2025-01-25 05:21] LABS: ALT/SGPT 26.0 U/L (13-56); AST/SGOT 13.0 U/L (15-37); Albumin 2.8 g/dL (3.4-5.0); Albumin/Globulin Ratio 0.8 (1.1-1.8); Alkaline Phosphatase 88.0 U/L (45-117); Anion Gap 6.0 mEq/L (5.0-15.0); BUN Blood Urea Nitrogen 10.0 mg/dL (7-18); Globulin 3.4 g/dL (2.3-3.5); Glucose Level 120.0 mg/dL (74-106); Potassium 4.0 mEq/L (3.5-5.1)
[2025-01-25] MEDS ORDERED: ENOXAPARIN 40 MG/0.4 ML SQ ONE (08:17)
[2025-01-25] MEDS: ENOXAPARIN 40 MG/0.4 ML SQ SCH (08:31)
--- NOTE | 2025-01-25 08:32 | P.PN ---
Date of Service: 01/25/25 Subjective: erythema significantly improved swelling persists, but better afebrile Physical Exam: Gen: Alert, Oriented, NAD CV: Regular rate and rhythm, no edema Pulm: Nonlabored respirations on room air, clear bilaterally Integumentary: RLE with minimal blotchy erythema above ankle, 1+ edema bilaterally above ankles Problem List: Right lower extremity cellulitis vs erythromelalgia like Hx umbilical hernia repair (2021) Hx iron deficiency anemia on admission, presents with right lower extremity pain, redness and swelling. +burning sensation Wad advised to come to ER by Dr. Lopez's office Continue empiric Zosyn (01/24- ) Follow blood cultures pain control no prior skin infections no significant risk of MRSA, no clear abscess /induration significant improvement - near resolution overnight suspicious for true cellulitis given the speed of resolution started nifedipine ~1 week ago - raising suspicion for possible erythromelalgia like syndrome - burning, redness, edema in extremity for now, will continue to treat for cellulitis, monitor for recurrence and monitor edema patient took home nifedipine this morning, continue to monitor VTE: Lovenox Code: Full Dispo: Home, 24hrs
[2025-01-25 10:40] VITALS: O2SAT 100
[2025-01-25] MEDS: HYDROCODONE/APAP 5/325 MG TAB PO PRN (16:35)
[2025-01-25] MEDS: NIFEDIPINE XL 60 MG TABLET PO SCH (21:00)
[2025-01-26 07:17] LABS: Absolute Lymphocytes (CBC) 2.6 K/uL (0.7-4.9); Hematocrit 36.8 % (36.0-45.0); Hemoglobin 12.7 g/dL (12.0-15.0); MCH 30.9 pg (27.0-35.0); MCHC 34.6 g/dL (32.0-36.0); MCV 89.5 fL (80-100); MPV 8.5 fL (7.6-11.3); Nucleated RBC Absolute Count 0.0 (0-0); Nucleated Red Blood Cells % 0.0 % (0-0); RBC Red Blood Cell Count 4.11 M/uL (3.86-4.86); White Blood Count 8.40 thou/uL (4.3-10.9)
[2025-01-26 07:36] LABS: Anion Gap 9.2 mEq/L (5.0-15.0); BUN Blood Urea Nitrogen 8.0 mg/dL (7-18); C-Reactive Protein 8.21 mg/L (<3.00); Glucose Level 116.0 mg/dL (74-106); Potassium 4.2 mEq/L (3.5-5.1)
[2025-01-26 08:41] VITALS: BP 136/65; TEMP 97.8
--- NOTE | 2025-01-26 09:29 | P.DS ---
Admission Date: 01/24/25 Discharge Date: 01/26/25 Disposition: ROUTINE DISCHARGE Discharge Condition: GOOD Reason for Admission: Cellulitis Right Lower Leg Brief History of Present Illness: 54 yo F, PMH: hypertension Patient was sent over by Dr. Fox's office for pain and swelling in the right lower extremity started 3 to 4 days ago and has been progressively getting worse. Patient denies any trauma. Insidious in onset. Denies any fever or chills. Denies any chest pain or shortness of breath. Patient was assessed in the ER and was admitted for further management of right lower extremity cellulitis Hospital Course: Problem List: Right lower extremity cellulitis vs erythromelalgia like syndrome Hx umbilical hernia repair (2021) Hx iron deficiency anemia Physician discharge instructions: Patient presented with right lower extremity pain, redness and swelling secondary to possible cellulitis, vs a possible erythromelalgia like syndrome from adverse drug reaction to calcium channel carrillo (Nifedipine). 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 Patient denied any prior skin infections or history of MRSA. Given her quick improvement/resolution of symptoms overnight, discussed that although rare, symptoms could be related to erythromelalgia like syndrome caused by Nifedipine that was just recently started ~1 week ago. Patient received IV zosyn while hospitalized and is to complete 1 week of keflex to cover possible cellulitis. Follow up with PCP/Cardiology in the near future for further management and to discuss possible alternatives to nifedipine. Keep legs elevated as much as possible to help with lower extremity swelling. Medications: Keflex No change in other home meds Follow up: PCP 3-5 days Cardiology in 2-4 weeks Please call to schedule / confirm appointments Physical Exam: Gen: Alert, Oriented, NAD CV: Regular rate and rhythm, no edema Pulm: Nonlabored respirations on room air, clear bilaterally Integumentary: RLE with minimal blotchy erythema; improved Vital Signs/Physical Exam: Temp Pulse Resp BP Pulse Ox 97.8 F 67 16 136/65 97 01/26/25 08:00 01/26/25 08:00 01/26/25 08:00 01/26/25 08:00 01/26/25 08:00 Laboratory Data at Discharge: WBC 8.40 thou/uL (4.3-10.9) 01/26/25 07:04 Hgb 12.7 g/dL (12.0-15.0) 01/26/25 07:04 Hct 36.8 % (36.0-45.0) 01/26/25 07:04 Plt Count 228 thou/uL (152-406) 01/26/25 07:04 PT 11.8 SECONDS (10-13.0) 01/24/25 16:20 INR 1.05 01/24/25 16:20 APTT 30.6 SECONDS (27.2-37.4) 01/24/25 16:20 Sodium 142 mEq/L (136-145) 01/26/25 07:04 Potassium 4.2 mEq/L (3.5-5.1) 01/26/25 07:04 BUN 8 mg/dL (7-18) 01/26/25 07:04 Creatinine 0.70 mg/dL (0.55-1.02) 01/26/25 07:04 Glucose 116 mg/dL (74-106) H 01/26/25 07:04 Total Bilirubin 0.3 mg/dL (0.2-1.0) 01/25/25 04:35 AST 13 U/L (15-37) L 01/25/25 04:35 ALT 26 U/L (13-56) 01/25/25 04:35 Alkaline Phosphatase 88 U/L (45-117) D 01/25/25 04:35 Home Medications: Nifedipine [Procardia Xl] 60 mg PO BEDTIME 01/24/25 Cephalexin [Keflex] 500 mg PO Q6HR 7 Days #28 cap 01/26/25 New Medications: Cephalexin [Keflex] 500 mg PO Q6HR 7 Days #28 cap Physician Discharge Instructions: Physician discharge instructions: Patient presented with right lower extremity pain, redness and swelling secondary to possible cellulitis, vs a possible erythromelalgia like syndrome from adverse drug reaction to calcium channel carrillo (Nifedipine). 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 Patient denied any prior skin infections or history of MRSA. Given her quick improvement/resolution of symptoms overnight, discussed that although rare, symptoms could be related to erythromelalgia like syndrome caused by Nifedipine that was just recently started ~1 week ago. Patient received IV zosyn while hospitalized and is to complete 1 week of keflex to cover possible cellulitis. Follow up with PCP/Cardiology in the near future for further management and to discuss possible alternatives to nifedipine. Keep legs elevated as much as possible to help with lower extremity swelling. Medications: Keflex No change in other home meds Follow up: PCP 3-5 days Cardiology in 2-4 weeks Please call to schedule / confirm appointments Followup: Ifeanyi Lopez MD [Primary Care Provider] - 1-2 Weeks Time spent managing pt's care (in minutes): 45
== END 2025-01-26 11:59 | disposition home or self-care (01) | DRG 603 ==
LOC: ER 14:17 → ERHOLD 18:40 → 2ND 01-25 10:34
PROVIDERS: ADMIT Family Medicine; ATTEND Hospitalist
DX: L03.115 Cellulitis of right lower limb (principal); Z68.41 Body mass index [BMI] 40.0-44.9, adult; E66.9 Obesity, unspecified; I10 Essential (primary) hypertension; F17.210 Nicotine dependence, cigarettes, uncomplicated; Z88.1 Allergy status to other antibiotic agents; Z90.49 Acquired absence of other specified parts of digestive tract; Z90.710 Acquired absence of both cervix and uterus
CPT/HCPCS: 36415; 80048; 80053; 80202; 81003; 81025; 82947; 83605; 83880; 84484; 85025; 85610; 85730; 86140; 87040; 93005; 99283; J1650; J2270; J2543; J3373; J7040